=== PATIENT | female | born 1930 | race African-American/Black ===

== ENCOUNTER 2018-03-14 07:30 | Inpatient (IN) | payer MEDICARE ==
[~2018-03-14] VITALS: Ht 157.5 cm; Wt 49.1 kg
--- NOTE | ~2018-03-14 | EC ---
PATIENT:ANASTACIO LARSON DATE OF SERVICE: 03/14/18 SEX: F MEDICAL RECORD: [id number] DATE OF : [birth year] LOCATION:D.M2 D.210 AGE OF PATIENT: 87 ADMISSION DATE: 03/14/18 REFERRING PHYSICIAN: INTERPRETING PHYSICIAN: SRIDHAR HORNER MD ECHOCARDIOGRAM REPORT ECHO CHARGES 4 ECHO COMPLETE Date: 03/15 CLINICAL DIAGNOSIS: ELEVATED BNP ECHOCARDIOGRAPHIC MEASUREMENTS (adult normal given) AC root (d.<3.7cm) 3.1 cm LV Septum d (<1.2 cm> 1.2 cm Valve Excursion 0.8 cm LV Septum (systole) 2.2 cm Left Atria (s.<4.0cm> 4.4 cm LVPW d(<1.2cm) 1.2 cm RV (d.<2.3cm) 2.7 cm LVPW (sytole) 2.2 cm LV diastole(<5.6CM) 6.6 cm MV E-F(>70mm/sec) cm LV systole 3.5 cm LVOT Diameter 1.5 cm MV exc.(>10mm) cm Est.ejection fraction (50-75%) % DOPPLER: LVIT cm/sec A 139 cm/sec E 119 cm/sec LA cm/sec RVSP 63.2 mmHg LVOT 103 cm/sec AOP1/2T m/s Asc. Ao 370 cm/sec RVOT 96.0 cm/sec RA cm/sec PA 127 cm/sec AV Gradient Peak 55.0 mmHg AV Mean 28.1 mmHg AV Area 0.4 cm MV Gradient Peak 8.3 mmHg MV Mean 3.1 mmHg MV Area cm COMMENTS: Heel Reducer: 1 NORA DE LEÓNDSOE Cloth Doubling Machine Operator: 1 Dr. Horner TAPE# PACS Pericardial Effusion Y DATE OF SERVICE: 03/15/2018 Echocardiogram FINDINGS: 1. Left ventricular chamber size is dilated. Left ventricular systolic function is markedly reduced, overall ejection fraction in the 25% range. 2. Left atrium, right atrium, and right ventricle chamber sizes are dilated giving 4-chamber dilatation. Left atrium measures 4.4 cm. 3. 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 The remaining valvular structures have normal structure and motion. 4. Doppler interrogation elsewise reveals mild aortic insufficiency, severe mitral regurgitation, severe tricuspid regurgitation, and pulmonary systolic pressure is elevated estimated 63 mmHg. 5. No evidence of pericardial effusion or left ventricular thrombus. TRANSINT:[id number] Voice Confirmation ID: [id number] DOCUMENT ID: [id number] SRIDHAR HORNER MD at 1403 CC: [id number] DICTATION DATE: 03/16/18 1011 GUEST SERVICES OFFICER: 03/16/18 1210 ADM IN [facility] [address] [id number]
[~2018-03-14 07:30] MED LIST: AMITIZA24 MCG PO; HYDROCHLOROTH12.5 M1 PO; IPRAT-ALBUT 0.5-3 ML IH; LOPRESSOR25 MG PO; MINERAL OIL25 ML PO; MIRALAX17 GM PO; NORVASC5 MG PO; PROCRIT/EP4000 UNITS IV; PROTONIX40 MG PO; REGLAN5 MG PO
[2018-03-14 07:58] LABS: BASOPHILS 0.1 % (0-2); EOSINOPHILS 0.2 % (0-7); HEMATOCRIT 31.2 % (36.0-48.0); HEMOGLOBIN 10.7 g/dL (12-16); IMMATURE GRANULOCYTES 0.2 % (0-5); LYMPHOCYTES 6.7 % (15-50); MCH 31.5 pg (26.0-34.0); MCHC 34.3 g/dL (31.0-37.0); MCV 91.8 fL (80.0-100.0); MEAN PLATELET VOLUME 11.1 fL (7.4-10.4); MONOCYTES 7.5 % (2-11); NEUTROPHILS 85.3 % (40-80); RDW 13.7 % (11.5-14.5); WBC 9.4 10x3/uL (4.8-10.8)
[2018-03-14 07:59] LABS: PLATELET COUNT 179 10x3/uL (130-400)
[2018-03-14 08:20] LABS: APPEARANCE HAZY (CLEAR); BILIRUBIN NEGATIVE (NEGATIVE); COLOR YELLOW (YELLOW); GLUCOSE NEGATIVE (NEGATIVE); KETONE NEGATIVE (NEGATIVE); NITRITE NEGATIVE (NEGATIVE); PROTEIN TRACE mg/dL (NEGATIVE); SPECIFIC GRAVITY 1.015 (1.005-1.020); UROBILINOGEN NORMAL (NORMAL)
[2018-03-14 08:23] LABS: AMORPHOUS SEDIMENT >1+ /lpf (NONE SEEN); BACTERIA FEW /hpf (NONE SEEN); EPITHELIAL CELLS RARE /hpf (0-5); GRANULAR CAST 0-5 /lpf (NONE SEEN); RED CELLS - URINE 0-5 /hpf (0-5); WHITE CELLS - URINE OCC /hpf (0-5)
[2018-03-14 08:43] LABS: ALKALINE PHOSPHATASE 55 U/L (46-116); ALT (SGPT) 17 U/L (10-68); BILIRUBIN - TOTAL 0.69 mg/dL (0.2-1.3); CALC OSMOLALITY 295 mosm/kg (275-300); CALCIUM 9.2 mg/dL (8.5-10.1); CARBON DIOXIDE 24.8 mmol/L (21.0-32.0); CHLORIDE - SERUM 104 mmol/L (98-107); CREATININE - SERUM 2.6 mg/dL (0.6-1.3); GLUCOSE 114 mg/dL (74-106); POTASSIUM - SERUM 3.5 mmol/L (3.5-5.1); SODIUM 138 mmol/L (136-145); UREA NITROGEN 67 mg/dL (7-18); eGFR NON AFRICAN AMERICAN 18 mL/min (90-120)
[2018-03-14 09:01] LABS: CREATINE KINASE 473 UL (21-215); MAGNESIUM - SERUM 2.3 mg/dL (1.8-2.4); PRO BNP 3558 pg/mL (0-450); TROPONIN-I 0.053 ng/mL (0.000-0.060)
[2018-03-14 09:03] LABS: CKMB 2.5 U/L (0.0-3.6)
[2018-03-14 11:30] LABS: BASOPHILS 0 % (0-2); EOSINOPHILS 0.1 % (0-7); HEMATOCRIT 29.9 % (36.0-48.0); HEMOGLOBIN 10.3 g/dL (12-16); IMMATURE GRANULOCYTES 0.3 % (0-5); LYMPHOCYTES 5.8 % (15-50); MCH 31.4 pg (26.0-34.0); MCHC 34.4 g/dL (31.0-37.0); MCV 91.2 fL (80.0-100.0); MEAN PLATELET VOLUME 10.5 fL (7.4-10.4); MONOCYTES 8.3 % (2-11); NEUTROPHILS 85.5 % (40-80); PLATELET COUNT 147 10x3/uL (130-400); RBC 3.28 10x6/uL (4.00-5.40); RDW 13.4 % (11.5-14.5); WBC 10.1 10x3/uL (4.8-10.8)
[2018-03-14 13:47] VITALS: BP 146/82; BMI 15.9
[2018-03-14 15:39] LABS: HEMATOCRIT 29.4 % (36.0-48.0); HEMOGLOBIN 10.2 g/dL (12-16)
[2018-03-14 15:53] VITALS: BP 114/65
[2018-03-14 16:43] LABS: BASOPHILS 0.1 % (0-2); EOSINOPHILS 0 % (0-7); IMMATURE GRANULOCYTES 0.3 % (0-5); MCH 31.2 pg (26.0-34.0); MCHC 34.2 g/dL (31.0-37.0); MONOCYTES 9.9 % (2-11); NEUTROPHILS 82.7 % (40-80); PLATELET COUNT 159 10x3/uL (130-400); RBC 3.24 10x6/uL (4.00-5.40); RDW 13.4 % (11.5-14.5)
[2018-03-14 20:34] VITALS: BP 143/78
[2018-03-15 01:31] VITALS: BP 122/73
[2018-03-15 05:43] VITALS: BP 141/73
[2018-03-15 06:57] LABS: BASOPHILS 0.2 % (0-2); EOSINOPHILS 0.6 % (0-7); HEMOGLOBIN 9.9 g/dL (12-16); IMMATURE GRANULOCYTES 0.2 % (0-5); LYMPHOCYTES 7.3 % (15-50); MCH 31.2 pg (26.0-34.0); MCHC 34.1 g/dL (31.0-37.0); MCV 91.5 fL (80.0-100.0); MONOCYTES 4.5 % (2-11); NEUTROPHILS 87.2 % (40-80); PLATELET COUNT 178 10x3/uL (130-400); RBC 3.17 10x6/uL (4.00-5.40); RDW 13.5 % (11.5-14.5); WBC 10.8 10x3/uL (4.8-10.8)
[2018-03-15 07:07] LABS: INR 1.08 (0.85-1.17); PROTIME 13.6 SECONDS (11.6-15.0)
[2018-03-15 07:21] LABS: ALBUMIN 2.6 g/dL (3.4-5.0); ANION GAP 15.8 mmol/L (8-16); BILIRUBIN - TOTAL 0.93 mg/dL (0.2-1.3); CALCIUM 8.4 mg/dL (8.5-10.1); CARBON DIOXIDE 23.2 mmol/L (21.0-32.0); CREATININE - SERUM 2.1 mg/dL (0.6-1.3)
[2018-03-15 07:28] LABS: AMYLASE - SERUM 53 U/L (25-115); LIPASE 100 U/L (73-393); PRO BNP 9018 pg/mL (0-450)
[2018-03-15] MEDS ORDERED: ROCALTROL0.25 MCG PO (08:46)
[2018-03-15 10:02] VITALS: BP 138/74
[2018-03-15 13:18] VITALS: BP 168/88
[2018-03-15 16:17] VITALS: BP 155/95
[2018-03-15 22:00] VITALS: BP 159/76
[2018-03-16 02:06] VITALS: BP 141/115
[2018-03-16 05:46] VITALS: BP 183/78
[2018-03-16 06:08] LABS: BASOPHILS 0.1 % (0-2); HEMATOCRIT 29.1 % (36.0-48.0); HEMOGLOBIN 9.8 g/dL (12-16); IMMATURE GRANULOCYTES 0.2 % (0-5); LYMPHOCYTES 6.2 % (15-50); MCH 30.8 pg (26.0-34.0); MCHC 33.7 g/dL (31.0-37.0); MCV 91.5 fL (80.0-100.0); MEAN PLATELET VOLUME 10.6 fL (7.4-10.4); MONOCYTES 3.9 % (2-11); NEUTROPHILS 88.6 % (40-80); PLATELET COUNT 168 10x3/uL (130-400); RBC 3.18 10x6/uL (4.00-5.40); RDW 13.7 % (11.5-14.5); WBC 10.2 10x3/uL (4.8-10.8)
[2018-03-16 06:35] LABS: ALBUMIN 2.5 g/dL (3.4-5.0); ANION GAP 14.6 mmol/L (8-16); BILIRUBIN - TOTAL 0.7 mg/dL (0.2-1.3); CALCIUM 7.8 mg/dL (8.5-10.1); CARBON DIOXIDE 21.1 mmol/L (21.0-32.0); CREATININE - SERUM 1.9 mg/dL (0.6-1.3); POTASSIUM - SERUM 3.7 mmol/L (3.5-5.1)
[2018-03-16 08:53] VITALS: BP 168/87
[2018-03-16 10:13] VITALS: Ht 157.5 cm; Wt 49.1 kg
[2018-03-16 11:45] VITALS: BP 158/88
[2018-03-16 20:00] VITALS: BP 152/92
[2018-03-17] VITALS: BP 163/85
[2018-03-17 04:00] VITALS: BP 166/93
[2018-03-17 05:25] LABS: BASOPHILS 0 % (0-2); EOSINOPHILS 1.3 % (0-7); HEMOGLOBIN 9.3 g/dL (12-16); IMMATURE GRANULOCYTES 0.3 % (0-5); LYMPHOCYTES 8.2 % (15-50); MCHC 34.4 g/dL (31.0-37.0); MEAN PLATELET VOLUME 11.1 fL (7.4-10.4); MONOCYTES 5.6 % (2-11); NEUTROPHILS 84.6 % (40-80); PLATELET COUNT 167 10x3/uL (130-400); RDW 13.7 % (11.5-14.5); WBC 8.7 10x3/uL (4.8-10.8)
[2018-03-17 05:57] LABS: ALBUMIN 2.4 g/dL (3.4-5.0); ANION GAP 13.5 mmol/L (8-16); BILIRUBIN - TOTAL 0.5 mg/dL (0.2-1.3); CALCIUM 8.2 mg/dL (8.5-10.1); CARBON DIOXIDE 20.5 mmol/L (21.0-32.0); CREATININE - SERUM 1.8 mg/dL (0.6-1.3); PROTEIN - SERUM 5.8 g/dL (6.4-8.2)
[2018-03-17 07:59] VITALS: BP 155/86
[2018-03-17 11:48] VITALS: BP 158/83
[2018-03-17 15:46] VITALS: BP 171/95
[2018-03-17 20:28] VITALS: BP 151/86
[2018-03-18 01:30] VITALS: BP 153/89
[2018-03-18 04:00] VITALS: BP 149/84
[2018-03-18 06:39] LABS: ALBUMIN 2.3 g/dL (3.4-5.0); ANION GAP 12.8 mmol/L (8-16); BILIRUBIN - TOTAL 0.4 mg/dL (0.2-1.3); CALCIUM 8.4 mg/dL (8.5-10.1); CARBON DIOXIDE 22.3 mmol/L (21.0-32.0); CREATININE - SERUM 1.7 mg/dL (0.6-1.3); POTASSIUM - SERUM 4.1 mmol/L (3.5-5.1); PROTEIN - SERUM 5.9 g/dL (6.4-8.2)
[2018-03-18 07:13] LABS: BASOPHILS 0.1 % (0-2); EOSINOPHILS 1.3 % (0-7); HEMATOCRIT 27.2 % (36.0-48.0); HEMOGLOBIN 9.3 g/dL (12-16); IMMATURE GRANULOCYTES 0.1 % (0-5); LYMPHOCYTES 8.9 % (15-50); MCHC 34.2 g/dL (31.0-37.0); MCV 90.7 fL (80.0-100.0); MEAN PLATELET VOLUME 10.7 fL (7.4-10.4); MONOCYTES 8.4 % (2-11); NEUTROPHILS 81.2 % (40-80); PLATELET COUNT 157 10x3/uL (130-400)
[2018-03-18 07:44] VITALS: BP 158/87
[2018-03-18 11:43] VITALS: BP 125/73
[2018-03-18 15:24] VITALS: BP 166/85
[2018-03-18 20:00] VITALS: BP 156/86
[2018-03-19 00:54] VITALS: BP 175/95
[2018-03-19 04:00] VITALS: BP 160/96
[2018-03-19 04:44] LABS: BASOPHILS 0.1 % (0-2); EOSINOPHILS 0.9 % (0-7); HEMATOCRIT 26.7 % (36.0-48.0); IMMATURE GRANULOCYTES 0.4 % (0-5); LYMPHOCYTES 9.4 % (15-50); MCH 30.6 pg (26.0-34.0); MCHC 33.7 g/dL (31.0-37.0); MCV 90.8 fL (80.0-100.0); MEAN PLATELET VOLUME 11.1 fL (7.4-10.4); MONOCYTES 7.3 % (2-11); NEUTROPHILS 81.9 % (40-80); PLATELET COUNT 152 10x3/uL (130-400); RBC 2.94 10x6/uL (4.00-5.40); WBC 6.7 10x3/uL (4.8-10.8)
[2018-03-19 05:06] LABS: ALBUMIN 2.1 g/dL (3.4-5.0); ANION GAP 12.1 mmol/L (8-16); BILIRUBIN - TOTAL 0.35 mg/dL (0.2-1.3); CALCIUM 8.8 mg/dL (8.5-10.1); CARBON DIOXIDE 24.4 mmol/L (21.0-32.0); CREATININE - SERUM 1.9 mg/dL (0.6-1.3); POTASSIUM - SERUM 4.5 mmol/L (3.5-5.1); PROTEIN - SERUM 5.9 g/dL (6.4-8.2)
[2018-03-19 08:59] VITALS: BP 149/103
[2018-03-19 12:13] VITALS: BP 130/80
[2018-03-19 15:43] VITALS: BP 143/75
[2018-03-19 21:08] VITALS: BP 147/73
[2018-03-20 01:39] VITALS: BP 142/84
[2018-03-20 06:14] VITALS: BP 135/77
[2018-03-20 10:03] LABS: ANION GAP 11.3 mmol/L (8-16); CALCIUM 9.3 mg/dL (8.5-10.1); CARBON DIOXIDE 25.5 mmol/L (21.0-32.0); POTASSIUM - SERUM 4.8 mmol/L (3.5-5.1)
[2018-03-20 11:23] LABS: HEMATOCRIT 25.8 % (36.0-48.0); HEMOGLOBIN 8.8 g/dL (12-16); MCH 31.1 pg (26.0-34.0); MCHC 34.1 g/dL (31.0-37.0); MCV 91.2 fL (80.0-100.0); MEAN PLATELET VOLUME 10.8 fL (7.4-10.4); PLATELET COUNT 134 10x3/uL (130-400); RBC 2.83 10x6/uL (4.00-5.40); RDW 14.3 % (11.5-14.5); WBC 5.7 10x3/uL (4.8-10.8)
[2018-03-20 11:29] LABS: LYMPHOCYTES 24 % (15-50); MONOCYTES 5 % (2-11); NEUTROPHILS 70 % (40-80); PLATELET ESTIMATE NORMAL
[2018-03-20 12:01] VITALS: BP 143/86
[2018-03-20 16:22] VITALS: BP 153/87
[2018-03-20 22:02] VITALS: BP 136/81
[2018-03-21 01:48] VITALS: BP 158/70
[2018-03-21 05:20] VITALS: BP 140/86
[2018-03-21 05:31] LABS: BASOPHILS 0.2 % (0-2); EOSINOPHILS 3.3 % (0-7); HEMATOCRIT 25.5 % (36.0-48.0); HEMOGLOBIN 8.5 g/dL (12-16); LYMPHOCYTES 17.9 % (15-50); MCH 30.6 pg (26.0-34.0); MCHC 33.3 g/dL (31.0-37.0); MCV 91.7 fL (80.0-100.0); MEAN PLATELET VOLUME 10.9 fL (7.4-10.4); MONOCYTES 10.5 % (2-11); NEUTROPHILS 68.1 % (40-80); PLATELET COUNT 135 10x3/uL (130-400); RBC 2.78 10x6/uL (4.00-5.40); RDW 14.3 % (11.5-14.5); WBC 4.5 10x3/uL (4.8-10.8)
[2018-03-21 05:37] LABS: ANION GAP 12.3 mmol/L (8-16); CALCIUM 8.9 mg/dL (8.5-10.1); CARBON DIOXIDE 25.4 mmol/L (21.0-32.0); CREATININE - SERUM 1.6 mg/dL (0.6-1.3); POTASSIUM - SERUM 4.7 mmol/L (3.5-5.1)
[2018-03-21 16:12] VITALS: BP 156/83
[2018-03-21 21:25] VITALS: BP 143/79
[2018-03-22 01:43] VITALS: BP 155/94
[2018-03-22 05:38] VITALS: BP 144/87
[2018-03-22 07:47] LABS: BASOPHILS 0.5 % (0-2); EOSINOPHILS 3.5 % (0-7); HEMATOCRIT 25.8 % (36.0-48.0); HEMOGLOBIN 8.5 g/dL (12-16); LYMPHOCYTES 20.7 % (15-50); MCH 30.6 pg (26.0-34.0); MCHC 32.9 g/dL (31.0-37.0); MCV 92.8 fL (80.0-100.0); MONOCYTES 9.9 % (2-11); NEUTROPHILS 65.4 % (40-80); PLATELET COUNT 126 10x3/uL (130-400); RBC 2.78 10x6/uL (4.00-5.40); RDW 14.2 % (11.5-14.5); WBC 3.7 10x3/uL (4.8-10.8)
[2018-03-22 07:56] LABS: ANION GAP 12.7 mmol/L (8-16); CALCIUM 8.7 mg/dL (8.5-10.1); CARBON DIOXIDE 24.6 mmol/L (21.0-32.0); CREATININE - SERUM 1.7 mg/dL (0.6-1.3); POTASSIUM - SERUM 5.3 mmol/L (3.5-5.1)
[2018-03-22 08:45] VITALS: BP 148/84
[2018-03-22 12:41] VITALS: BP 154/70
[2018-03-22 16:00] VITALS: BP 155/90
[2018-03-22 20:30] VITALS: BP 159/93
[2018-03-23 00:30] VITALS: BP 166/99
[2018-03-23 04:30] VITALS: BP 160/90
[2018-03-23 05:25] LABS: BASOPHILS 0.3 % (0-2); EOSINOPHILS 3.9 % (0-7); HEMATOCRIT 25.9 % (36.0-48.0); HEMOGLOBIN 8.5 g/dL (12-16); IMMATURE GRANULOCYTES 0.3 % (0-5); MCH 30.2 pg (26.0-34.0); MCHC 32.8 g/dL (31.0-37.0); MCV 92.2 fL (80.0-100.0); MEAN PLATELET VOLUME 10.7 fL (7.4-10.4); NEUTROPHILS 67.5 % (40-80); PLATELET COUNT 149 10x3/uL (130-400); RBC 2.81 10x6/uL (4.00-5.40); WBC 3.8 10x3/uL (4.8-10.8)
[2018-03-23 05:39] LABS: ANION GAP 9.7 mmol/L (8-16); CALCIUM 8.2 mg/dL (8.5-10.1); CARBON DIOXIDE 27.2 mmol/L (21.0-32.0); CREATININE - SERUM 1.5 mg/dL (0.6-1.3); POTASSIUM - SERUM 4.9 mmol/L (3.5-5.1)
[2018-03-23 07:59] VITALS: BP 150/92
[2018-03-23 11:17] VITALS: BP 144/72
[2018-03-23 20:00] VITALS: BP 134/92
[2018-03-24 04:00] VITALS: BP 148/92
[2018-03-24 04:24] LABS: BASOPHILS 0.3 % (0-2); EOSINOPHILS 3.3 % (0-7); HEMATOCRIT 25.3 % (36.0-48.0); HEMOGLOBIN 8.4 g/dL (12-16); IMMATURE GRANULOCYTES 0.3 % (0-5); LYMPHOCYTES 15.6 % (15-50); MCH 30.5 pg (26.0-34.0); MCHC 33.2 g/dL (31.0-37.0); MEAN PLATELET VOLUME 10.6 fL (7.4-10.4); MONOCYTES 8.3 % (2-11); NEUTROPHILS 72.2 % (40-80); PLATELET COUNT 133 10x3/uL (130-400); RBC 2.75 10x6/uL (4.00-5.40); RDW 14.1 % (11.5-14.5)
[2018-03-24 04:42] LABS: ANION GAP 13.8 mmol/L (8-16); CALCIUM 7.6 mg/dL (8.5-10.1); CARBON DIOXIDE 25.5 mmol/L (21.0-32.0); CREATININE - SERUM 1.8 mg/dL (0.6-1.3); POTASSIUM - SERUM 5.3 mmol/L (3.5-5.1)
[2018-03-24 08:08] VITALS: BP 147/88
== END 2018-03-24 14:38 | DRG 377 ==
LOC: D.ER 07:30 → D.EDHOLD 10:05 → D.M2 10:05
PROVIDERS: Emergency Medicine; Family Medicine; Internal Medicine Gastroenterology; Internal Medicine Nephrology
DX: K62.5 Hemorrhage of anus and rectum (principal); I50.23 Acute on chronic systolic (congestive) heart failure; N17.9 Acute kidney failure, unspecified; D62 Acute posthemorrhagic anemia; A09 Infectious gastroenteritis and colitis, unspecified; K55.9 Vascular disorder of intestine, unspecified; E46 Unspecified protein-calorie malnutrition; Z68.1 Body mass index [BMI] 19.9 or less, adult; I13.0 Hypertensive heart and chronic kidney disease with heart failure and stage 1 through stage 4 chronic kidney disease, or unspecified chronic kidney disease; E86.0 Dehydration; N18.9 Chronic kidney disease, unspecified; Z72.0 Tobacco use; E87.5 Hyperkalemia

== ENCOUNTER 2018-05-23 17:14 | Inpatient (IN) | payer MEDICARE ==
[~2018-05-23] VITALS: Ht 157.5 cm; Wt 37.5 kg
[~2018-05-23 17:14] MED LIST changes: +ROCALTROL0.25 MCG PO
[2018-05-23] MEDS ORDERED: BUMETANIDE0.5 MG PO (17:18)
[2018-05-23 17:45] LABS: BASOPHILS 0.2 % (0-2); EOSINOPHILS 0.2 % (0-7); HEMATOCRIT 31.7 % (36.0-48.0); HEMOGLOBIN 10.4 g/dL (12-16); IMMATURE GRANULOCYTES 0.2 % (0-5); LYMPHOCYTES 17.6 % (15-50); MCH 31.1 pg (26.0-34.0); MCHC 32.8 g/dL (31.0-37.0); MCV 94.9 fL (80.0-100.0); MEAN PLATELET VOLUME 9.7 fL (7.4-10.4); MONOCYTES 8.4 % (2-11); NEUTROPHILS 73.4 % (40-80); PLATELET COUNT 149 10x3/uL (130-400); RBC 3.34 10x6/uL (4.00-5.40); RDW 13.9 % (11.5-14.5); WBC 4.3 10x3/uL (4.8-10.8)
[2018-05-23 18:27] LABS: ALBUMIN 3.5 g/dL (3.4-5.0); BILIRUBIN - TOTAL 0.96 mg/dL (0.2-1.3); CALCIUM 9.2 mg/dL (8.5-10.1); CREATININE - SERUM 2.4 mg/dL (0.6-1.3); PROTEIN - SERUM 7.1 g/dL (6.4-8.2)
[2018-05-23 19:47] LABS: APPEARANCE CLEAR (CLEAR); BILIRUBIN NEGATIVE (NEGATIVE); COLOR YELLOW (YELLOW); GLUCOSE NEGATIVE (NEGATIVE); KETONE NEGATIVE (NEGATIVE); NITRITE NEGATIVE (NEGATIVE); PROTEIN TRACE mg/dL (NEGATIVE); UROBILINOGEN NORMAL (NORMAL)
[2018-05-23 19:49] LABS: BACTERIA FEW /hpf (NONE SEEN); EPITHELIAL CELLS 0-5 /hpf (0-5); RED CELLS - URINE 0-5 /hpf (0-5)
[2018-05-23 23:53] VITALS: BP 131/87
[2018-05-24] VITALS (7 sets, daily range): BP systolic 134–164; BP diastolic 82–98
[2018-05-24 06:14] LABS: BASOPHILS 0.2 % (0-2); EOSINOPHILS 0.5 % (0-7); HEMATOCRIT 29.2 % (36.0-48.0); HEMOGLOBIN 9.4 g/dL (12-16); IMMATURE GRANULOCYTES 0.2 % (0-5); LYMPHOCYTES 18.4 % (15-50); MCHC 32.2 g/dL (31.0-37.0); MCV 96.4 fL (80.0-100.0); MEAN PLATELET VOLUME 10.6 fL (7.4-10.4); MONOCYTES 10.9 % (2-11); NEUTROPHILS 69.8 % (40-80); PLATELET COUNT 153 10x3/uL (130-400); RBC 3.03 10x6/uL (4.00-5.40)
[2018-05-24 06:17] LABS: WBC 5.5 10x3/uL (4.8-10.8)
[2018-05-24 07:31] LABS: ANION GAP 14.7 mmol/L (8-16); CALCIUM 8.4 mg/dL (8.5-10.1); CARBON DIOXIDE 28.5 mmol/L (21.0-32.0); CREATININE - SERUM 2.2 mg/dL (0.6-1.3); POTASSIUM - SERUM 4.2 mmol/L (3.5-5.1)
[2018-05-25 00:11] VITALS: BP 156/90; BP 159/88
[2018-05-25 04:00] VITALS: BP 121/86
[2018-05-25 04:10] VITALS: BP 156/90; BMI 20.1
[2018-05-25 06:13] LABS: BASOPHILS 0 % (0-2); EOSINOPHILS 0.7 % (0-7); HEMATOCRIT 29.8 % (36.0-48.0); HEMOGLOBIN 9.8 g/dL (12-16); IMMATURE GRANULOCYTES 0.2 % (0-5); MCH 31.2 pg (26.0-34.0); MCHC 32.9 g/dL (31.0-37.0); MCV 94.9 fL (80.0-100.0); MEAN PLATELET VOLUME 10.9 fL (7.4-10.4); MONOCYTES 6.3 % (2-11); NEUTROPHILS 73.8 % (40-80); PLATELET COUNT 142 10x3/uL (130-400); RBC 3.14 10x6/uL (4.00-5.40); RDW 14.1 % (11.5-14.5); WBC 4.2 10x3/uL (4.8-10.8)
[2018-05-25 06:51] LABS: ALBUMIN 3.1 g/dL (3.4-5.0); BILIRUBIN - TOTAL 0.83 mg/dL (0.2-1.3); CALCIUM 8.5 mg/dL (8.5-10.1); CARBON DIOXIDE 25.8 mmol/L (21.0-32.0); CREATININE - SERUM 1.9 mg/dL (0.6-1.3); POTASSIUM - SERUM 3.8 mmol/L (3.5-5.1); PROTEIN - SERUM 6.7 g/dL (6.4-8.2)
[2018-05-25 13:39] VITALS: Ht 157.5 cm; Wt 37.5 kg
[2018-05-25 23:37] VITALS: BP 165/99
[2018-05-26 05:00] VITALS: BP 166/96
[2018-05-26 06:00] LABS: BASOPHILS 0.2 % (0-2); EOSINOPHILS 0.4 % (0-7); HEMATOCRIT 31.3 % (36.0-48.0); HEMOGLOBIN 10.1 g/dL (12-16); MCH 30.9 pg (26.0-34.0); MCHC 32.3 g/dL (31.0-37.0); MCV 95.7 fL (80.0-100.0); MEAN PLATELET VOLUME 10.8 fL (7.4-10.4); MONOCYTES 5.6 % (2-11); NEUTROPHILS 77.8 % (40-80); PLATELET COUNT 144 10x3/uL (130-400); RBC 3.27 10x6/uL (4.00-5.40); RDW 14.1 % (11.5-14.5)
[2018-05-26 06:32] LABS: ANION GAP 15.2 mmol/L (8-16); CALCIUM 8.5 mg/dL (8.5-10.1); CARBON DIOXIDE 24.9 mmol/L (21.0-32.0); CREATININE - SERUM 1.9 mg/dL (0.6-1.3); POTASSIUM - SERUM 4.1 mmol/L (3.5-5.1)
[2018-05-26 08:02] VITALS: BP 157/87
[2018-05-26 11:38] VITALS: BP 157/90
[2018-05-26 15:40] VITALS: BP 161/92
[2018-05-26 22:16] VITALS: BP 163/84
[2018-05-27 05:54] LABS: ANION GAP 18.4 mmol/L (8-16); CALCIUM 8.5 mg/dL (8.5-10.1); CARBON DIOXIDE 22.4 mmol/L (21.0-32.0); CREATININE - SERUM 2.2 mg/dL (0.6-1.3); MAGNESIUM - SERUM 2.2 mg/dL (1.8-2.4); PHOSPHOROUS 3.3 mg/dL (2.5-4.9); POTASSIUM - SERUM 3.8 mmol/L (3.5-5.1)
[2018-05-27 06:42] VITALS: BP 157/96
[2018-05-27] MEDS ORDERED: NORVASC2.5 MG PO (10:59)
[2018-05-27] MEDS ORDERED: COREG 3.1253.125 MG PO (10:59)
[2018-05-27] MEDS ORDERED: IPRAT-ALBUT 0.5-3 ML UPD (10:59)
[2018-05-27] MEDS ORDERED: ROBITUSSIN DM 110 ML PO (11:14)
[2018-05-27] MEDS ORDERED: ZOFRAN ODT4 MG/UDTAB PO (12:38)
[2018-05-27 13:57] VITALS: BP 175/97
== END 2018-05-27 13:15 | disposition home or self-care (01) | DRG 698 ==
LOC: D.ER 17:14 → OBSVTIME 22:45 → D.M2 22:45 → D.EDHOLD 22:45 → D.M2 05-24 17:20
PROVIDERS: Family Medicine
DX: N28.9 Disorder of kidney and ureter, unspecified (principal); I50.23 Acute on chronic systolic (congestive) heart failure; I13.0 Hypertensive heart and chronic kidney disease with heart failure and stage 1 through stage 4 chronic kidney disease, or unspecified chronic kidney disease; Z68.1 Body mass index [BMI] 19.9 or less, adult; N18.9 Chronic kidney disease, unspecified; I70.0 Atherosclerosis of aorta; E86.0 Dehydration; R11.2 Nausea with vomiting, unspecified